=== PATIENT | male | born 1940 | race Caucasian/White ===

== ENCOUNTER 2017-10-13 09:55 | Day surgery (SDC) | payer BC ==
[2017-10-12 09:05] VITALS: BMI 25.1
[2017-10-13] MEDS ORDERED: Midazolam HCl 2 mg/2 ml Vial ONE (12:01)
--- NOTE | 2017-10-13 14:14 | MRI ---
LUMBAR SPINE MRI WITH AND WITHOUT CONTRAST: Date: 10/13/17 HISTORY: Neck and bilateral shoulder pain, left greater than right. Difficulty walking, x2 months. Multiple fa lls. Previous back surgery. COMPARISON: None. TECHNIQUE: MRI of the lumbar spine is performed with and without intravenous Gadolinium administration. Multiseq uential, multiplanar imaging is performed. FINDINGS: Straightening of normal lumbar lordosis, likely due to patient positioning. There are Type I and Type II Modic changes at the inferior aspect of L2 and superior aspect of L3. No significant STIR hyperin tensity to suggest edema or ligamentous injury. There is edema in the L2-L3 disc space. There is no s ignificant associated enhancement. Symmetric signal intensity of the psoas muscles. Appropriate signal intensity of the visualized solid organs. Conus medullaris terminates at lower aspect of L1. T12-L1: Adequate disc hydration. No significant central canal stenosis. Neural foramina are patent bilaterall y. L1-L2: Desiccation with mild loss of disc space height. Central, left paracentral, foraminal, and extraforam inal disc. Ligamentum flavum thickening and facet hypertrophy are present. Mild central canal stenosi s. Neural foramina are patent. L2-L3: Moderate loss of disc space height. Posterior decompressive laminectomy defect. There is narrowing of the left subarticular zone with combination of disc material and enhancing scar tissue. There is mas s effect without obscuration of traversing left L3 nerve root. There is no significant central canal stenosis. Bilateral facet hypertrophy is identified. Moderate to severe bilateral neural foraminal na rrowing. L3-L4: Desiccation with mild loss of disc space height. Vacuum disc phenomenon is noted. There is a right he milaminectomy defect. No high grade central canal stenosis. Minimal encroachment upon the left subart icular zone without significant obscuration of the traversing right L4 nerve root. Moderate right and left foraminal narrowing. On the postcontrast images, there is no abnormal enhancement. L4-L5: Desiccation with mild loss of disc space height. Minimal encroachment upon both subarticular zones du e to disc material. No significant central canal stenosis. Moderate bilateral neural foraminal narrow ing. L5-S1: Severe loss of disc space height. There is a generalized disc bulge without significant stenosis of t he thecal sac. Disc material encroaches upon both subarticular zones with mild mass effect upon bilat eral traversing S1 nerve roots. Moderate to severe bilateral neural foraminal narrowing. IMPRESSION: 1. Postsurgical changes of the lumbar spine as above. There is no high grade central canal stenosis. 2. Disc material in the left subarticular zone, along with scar tissue, at L2-L3. As stated above, t here is some mass effect without complete obscuration of the traversing left L3 nerve root. 3. Mild narrowing of the left subarticular zone at L3-L4 without significant obscuration of the saray ersing left L4 nerve root. POS: OFF
--- NOTE | 2017-10-13 14:30 | MRI ---
MRI CERVICAL SPINE WITH AND WITHOUT CONTRAST: TECHNIQUE: Multiplanar, multisequential imaging of the cervical spine was obtained. Postcontrast images were ob tained. INDICATION: Cervical radiculopathy. Prior cervical spine surgery. COMPARISON: No comparison exam. FINDINGS: There are moderate degenerative changes of the cervical spine noted. There is loss of disk space at all levels. Mild posterior listhesis at C5-6 and C6-7. Prominent posterior spondylitic changes at a ll levels of the lumbar spine. At C1-C2, prominent hypertrophic change is seen at the lateral axial joint and surrounding the dens. This hypertrophic change has the appearance of prominent panus which can be associated with rheumato id arthritis. This compresses the anterior cord and is especially pronounced to the left of midline. It does result in moderate cervical canal stenosis at the C1-2 level. At C2-3, disk bulge and spondylosis efface the anterior subarachnoid space and abut the cord. Right foraminal stenosis due to hypertrophic change. At C3-4, disk bulge and spondylosis efface the anterior subarachnoid space. Right foraminal stenosis due to facet and uncinate hypertrophy. At C4-5, disk bulge and spondylosis flatten the thecal sac. Anterior subarachnoid space is preserved . There is evidence of bilateral foraminal narrowing more prominent on the right. There is a nodular density in the anterior spinal canal on the right at the C4-5 level which is extra medullary. This may be intradural in location. It measures approximately 7 mm in the sagittal plane and does show evidence of mild enhancement on the postcontrast images, best appreciated on sagittal T1 fat-sat post contrast. At C5-6, disk bulge and spondylosis flatten the thecal sac; however, the anterior subarachnoid space is preserved. Prominent uncinate hypertrophy is seen bilaterally. This results in bilateral foramin al narrowing more severe on the left at this level. At C6-7, mild posterior listhesis with disk bulge and spondylosis flattening the thecal sac. The ant erior subarachnoid space is preserved. Uncinate hypertrophy is prominent with mild foraminal narrowi ng bilaterally. Postop laminectomy changes are seen from C3 through C6. IMPRESSION: 1. Prominent hypertrophic change at C1-2 has the appearance of prominent panus which impinges on the cord producing moderate cervical canal stenosis and cord impingement at the C1-2 level. 2. There is thickening of the posterior longitudinal ligament throughout the cervical spine and disk bulge and spondylosis seen at all levels with hypertrophic changes resulting in foraminal stenosis a t multiple levels as described above. 3. There is a question of a nodular density in the anterior spinal canal on the right at C4-5. This is extramedullary but could potentially be intradural. It appears extradural on sagittal imaging. It does not have a typical T2 characteristic of a schwannoma and does not have the enhancement charac teristic of a sequestered disk. It may be panus from the uncinate process with enhancement. Other e nhancing masses cannot be excluded on this study. Recommend consideration for post myelogram CT of t he cervical spine which can better assess the bony and soft tissue hypertrophic changes and may enabl e better characterization of this extramedullary nodule. POS: LOBITO
== END 2017-10-13 15:54 | disposition home or self-care (01) ==
LOC: SDC/OP 09:55
PROVIDERS: ATTEND Neurological Surgery
DX: M54.12 Radiculopathy, cervical region (principal); Z88.2 Allergy status to sulfonamides; Z79.82 Long term (current) use of aspirin; Z79.899 Other long term (current) drug therapy
CPT/HCPCS: 72156; 72158; J2250

== ENCOUNTER 2018-10-09 12:15 | Day surgery (SDC) | payer BC ==
[2018-10-08 14:11] VITALS: BMI 24.3
[2018-10-09] MEDS ORDERED: Gadobenate Dimeglumine 529 MG/1 ML (20ML VIAL) ONE (13:09)
--- NOTE | 2018-10-09 15:58 | MRI ---
CERVICAL SPINE MRI WITHOUT CONTRAST: 10/09/18 HISTORY: Cervical fusion, gate instability, unsteadiness, abnormal finding on prior imaging on the right at C4 -5. COMPARISON: 10/13/17. TECHNIQUE: Multiplanar and multisequence MR imaging of the cervical spine obtained with and without contrast. FINDINGS: The sagittal STIR imaging demonstrates no focal area of osseous marrow edema. There is fluid layering posteriorly in the oropharynx and hypopharynx. There is extensive bilateral posterior laminectomy change present spanning the C3 through C6 levels. There is moderate degenerative change at the atlantoaxial interspace with posterior degenerative pann us formation. There is susceptibility artifact bilaterally at the C6 level suggesting posterior fusion hardware. C2-3: Disc space narrowing and disc desiccation. No anterolisthesis or retrolisthesis. Bilateral face t and uncovertebral osteophyte formation, right greater than left. Moderate bilateral neural foramina l stenosis. No significant central canal stenosis. C4-5, there is disc space narrowing and dis desiccation with disc osteophyte complex. There is bilate ral facet and uncovertebral osteophyte formation. There is mild central canal stenosis and severe eduardo ateral neural foraminal stenosis. There is mild retrolisthesis at C3-4 measuring approximately 3 mm. C4-5: No central canal stenosis. There is disc space narrowing and disc desiccation. There is bilater al facet and uncovertebral osteophyte formation with moderate/severe bilateral neural foraminal steno sis. C5-6: There is disc space narrowing and disc desiccation and disc bulge with a small central disc pro trusion. No central canal stenosis. Facet and uncovertebral osteophyte formation noted bilaterally, l eft greater than right. Severe left and mild to moderate right neural foraminal stenosis. C6-7: There is disc space narrowing and disc desiccation and disc osteophyte complex. No significant central canal stenosis. Bilateral facet and uncovertebral osteophyte formation. Moderate right and se [place] left neural foraminal stenosis. C7-T1: Bilateral facet hypertrophy. Moderate left neural foraminal stenosis. No significant central c anal or right neural foraminal stenosis. The prior study performed 10/13/17 demonstrated a small focus of enhancement within the anterior and r ight lateral aspect of the central canal at the C4-5 level. On today's exam, that focus of enhancemen t is no longer appreciated. The postcontrast imaging demonstrates no significant abnormal enhancement involving the contents of the thecal sac. There is no abnormal enhancement involving the imaged vert ebral bodies or intervertebral discs. There is mild enhancement involving the soft tissues about the dens, both anterior and posterior to t he dens as well as superior to the dens likely on the basis of granulation tissue. No discrete focal area of abnormal signal intensity is identified within the cervical cord. It is difficult to visualize the normal flow void of the left vertebral arteries suggesting that the left vertebral artery may be occluded. IMPRESSION: Extensive postoperative and degenerative change noted within the cervical spine as detailed above. Th e subcentimeter focus of abnormal enhancement identified within the central canal on the right at C4- 5 on the prior examination is not visualized on this study. Question occlusion of the left vertebral artery. POS: [facility]
== END 2018-10-09 16:58 | disposition home or self-care (01) ==
LOC: SDC/OP 12:15
DX: R26.81 Unsteadiness on feet (principal); R93.89 Abnormal findings on diagnostic imaging of other specified body structures; Z79.82 Long term (current) use of aspirin; Z79.899 Other long term (current) drug therapy; Z88.2 Allergy status to sulfonamides; Z98.1 Arthrodesis status
CPT/HCPCS: 72156; A9577

== ENCOUNTER 2021-12-24 14:31 | Inpatient (IN) | payer BC, MEDICARE ==
[~2021-12-24 14:31] MED LIST: Iopamidol-370 76% 500 ML 1 ML ONE
[2021-12-24 15:16] LABS: #Eosinphils 0.2 thou/uL (0.0-0.7); #Lymphocytes 1.5 thou/uL (1.20-3.40); #Monocytes 0.9 thou/uL (0.11-0.59); #Neutrophils 6.9 thou/uL (1.40-6.50); %Basophils 0.1 % (0.0-1.0); %Eosinophils 2.3 % (0.0-10.0); %Lymphocytes 15.7 % (21.0-51.0); %Neutrophils 72.9 % (42.0-75.0); Hemoglobin 15.2 g/dL (14.0-18.0); Mean Corpuscular HGB CONC 32.8 g/dL (32.0-36.0); Mean Corpuscular Hemoglobin 32.1 pg (27.0-31.0); Mean Corpuscular Volume 97.9 fL (78.0-98.0); Platelet Count 281 thou/uL (130-400); RBC Distribution Width 12.4 % (11.5-14.5); Red Blood Cell (RBC) Count 4.73 mill/uL (4.70-6.10); White Blood Cell (WBC) Count 9.4 thou/uL (4.8-10.8)
[2021-12-24 15:24] LABS: Prothrombin Time 13.4 sec (12.0-14.7)
[2021-12-24 15:25] LABS: PTT 29.7 sec (22.9-36.1)
[2021-12-24 15:49] LABS: ALT (SGPT) 13 U/L (8-55); AST (SGOT) 18 U/L (5-34); Albumin 4.2 g/dL (3.4-4.8); Alkaline Phosphatase 73 U/L (40-110); Anion Gap 15 mmol/L (10-20); BUN (Urea Nitrogen) 15 mg/dL (8.4-25.7); Bilirubin, Total 1.5 mg/dL (0.2-1.2); CK (CPK) 122 U/L (30-200); Calc. Creatinine Clearance 0 mL/min (70-130); Calcium 9.4 mg/dL (7.8-10.44); Carbon Dioxide 22 mmol/L (23-31); Chloride 104 mmol/L (98-107); Estimated GFR 84; Globulin 3.1 g/dL (2.4-3.5); Glucose 128 mg/dL (83-110); Potassium 4.3 mmol/L (3.5-5.1); Protein, Total 7.3 g/dL (5.8-8.1); Sodium 137 mmol/L (136-145)
[2021-12-24] MEDS ORDERED: Aspirin Chewable 81 MG TAB ONE (16:33)
[2021-12-24] MEDS ORDERED: Senokot S 8.6-50 MG TAB PO PRN (17:13)
[2021-12-24] MEDS ORDERED: Ondansetron ODT 4 MG TAB PO PRN (17:13)
[2021-12-24 20:08] LABS: SARS-CoV-2 NAA Rapid Test Not Detected (NotDetected)
[2021-12-24] MEDS ORDERED: Acetaminophen 500 MG TAB PO SCH (23:59)
[2021-12-25] MEDS: Sodium Chloride 0.9% 1,000 ML IV SCH ×2 (00:02→15:39)
[2021-12-25] MEDS: Atorvastatin Calcium 40 MG TAB PO SCH ×2 (00:03→21:09)
[2021-12-25] MEDS: Famotidine 20 MG TAB PO SCH ×3 (00:03→22:28)
[2021-12-25] MEDS: Timolol 0.5% Ophth Soln 5 ml Bottle EA EYE SCH ×3 (00:21→22:51)
[2021-12-25] MEDS: Finasteride 5 MG TAB PO SCH ×2 (00:21→22:29)
[2021-12-25 01:03] VITALS: BMI 24.9
[2021-12-25 05:39] LABS: #Eosinphils 0.3 thou/uL (0.0-0.7); #Lymphocytes 2.4 thou/uL (1.20-3.40); #Monocytes 0.9 thou/uL (0.11-0.59); #Neutrophils 4.4 thou/uL (1.40-6.50); %Basophils 0.4 % (0.0-1.0); %Lymphocytes 29.6 % (21.0-51.0); %Monocytes 11.6 % (0.0-10.0); %Neutrophils 54.4 % (42.0-75.0); Hemoglobin 14.9 g/dL (14.0-18.0); Mean Corpuscular HGB CONC 32.6 g/dL (32.0-36.0); Mean Corpuscular Hemoglobin 31.6 pg (27.0-31.0); Mean Corpuscular Volume 96.9 fL (78.0-98.0); Mean Platelet Volume 6.9 fL (7.4-10.4); Platelet Count 283 thou/uL (130-400); RBC Distribution Width 12.3 % (11.5-14.5); Red Blood Cell (RBC) Count 4.71 mill/uL (4.70-6.10); White Blood Cell (WBC) Count 8.1 thou/uL (4.8-10.8)
[2021-12-25 06:02] LABS: ALT (SGPT) 12 U/L (8-55); AST (SGOT) 21 U/L (5-34); Alkaline Phosphatase 70 U/L (40-110); Anion Gap 15 mmol/L (10-20); BUN (Urea Nitrogen) 16 mg/dL (8.4-25.7); Bilirubin, Total 1.3 mg/dL (0.2-1.2); Calc. Creatinine Clearance 82 mL/min (70-130); Calcium 9.3 mg/dL (7.8-10.44); Carbon Dioxide 21 mmol/L (23-31); Cardiac Risk 2.9 (Less than 4.5); Chloride 108 mmol/L (98-107); Cholesterol 106 mg/dl (< 200 Desired); Estimated GFR 90; Glucose 88 mg/dL (83-110); HDL Cholesterol 36 mg/dL (>60 Neg Risk); LDL Cholesterol, Calculated 53 mg/dL; Potassium 3.6 mmol/L (3.5-5.1); Sodium 140 mmol/L (136-145); Triglycerides 85 mg/dL (Less than 150)
[2021-12-25] MEDS: Aspirin 325 mg Enteric Coated Tablet PO SCH (08:27)
[2021-12-25] MEDS: Enoxaparin Sodium 40 MG/0.4 ML SYRINGE SC SCH (08:29)
[2021-12-25] MEDS ORDERED: Midazolam HCl 2 mg/2 ml Vial SLOW IVP SCH (10:15)
[2021-12-25] MEDS ORDERED: Acetaminophen 500 MG TAB PO SCH ×2 (21:00→23:15)
[2021-12-25] MEDS ORDERED: Amlodipine 5 MG TAB PO SCH (21:00)
[2021-12-26] MEDS: Sodium Chloride 0.9% 1,000 ML IV SCH (00:09)
[2021-12-26] MEDS ORDERED: Amlodipine 5 MG TAB PO SCH (09:00)
[2021-12-26] MEDS: Famotidine 20 MG TAB PO SCH (09:06)
[2021-12-26] MEDS: Aspirin 325 mg Enteric Coated Tablet PO SCH (09:11)
[2021-12-26] MEDS: Enoxaparin Sodium 40 MG/0.4 ML SYRINGE SC SCH (09:13)
[2021-12-26] MEDS: Timolol 0.5% Ophth Soln 5 ml Bottle EA EYE SCH (10:35)
[2021-12-26 15:46] VITALS: TEMP 98.4
[2021-12-26 15:49] VITALS: BP 100/54
== END 2021-12-26 18:56 | disposition home or self-care (01) | DRG 65 ==
LOC: ERS 14:31 → ERHOLD 17:13 → NEURO 23:09
PROVIDERS: ADMIT Internal Medicine; ATTEND Internal Medicine
DX: I63.81 Other cerebral infarction due to occlusion or stenosis of small artery (principal); G81.94 Hemiplegia, unspecified affecting left nondominant side; R29.701 NIHSS score 1; I65.21 Occlusion and stenosis of right carotid artery; Z20.822 Contact with and (suspected) exposure to COVID-19; I48.91 Unspecified atrial fibrillation; I10 Essential (primary) hypertension; E78.2 Mixed hyperlipidemia; F40.240 Claustrophobia; F41.1 Generalized anxiety disorder; N40.0 Benign prostatic hyperplasia without lower urinary tract symptoms; I25.10 Atherosclerotic heart disease of native coronary artery without angina pectoris; Z88.2 Allergy status to sulfonamides; Z79.82 Long term (current) use of aspirin; Z79.899 Other long term (current) drug therapy
CPT/HCPCS: 36415; 36416; 70450; 70496; 70498; 70551; 71045; 80053; 80061; 82550; 84484; 85025; 85610; 85730; 93005; 93306; 94760; J2250; J7050; Q9967; U0002